=== PATIENT | male | born 1935 | race Caucasian/White ===

== ENCOUNTER 2018-12-04 08:19 | Outpatient (CLI) | payer MEDICARE, BC ==
[~2018-12-04 08:19] MED LIST: ALLO300T10 PO; ASCO-139 PO; ASPI-1009 PO; CALC625T61 PO; CARV80CP5 PO; CHOL100010 PO; COU5T PO; DOXA4TAB5 PO; ENOX100S3 SQ; IRON150C13 PO; LATA2.5D6 OP; MULT1TAB PO; RESV250C2 PO; VALS1TAB81 PO; VITA150T PO; ZINC1CAP3 PO; [UNRECOGNIZED DRUG - CODE] PO
== END 2018-12-04 23:59 | disposition home or self-care (01) ==
LOC: DIABETIC 08:19
PROVIDERS: ATTEND Internal Medicine Critical Care Medicine
DX: I12.9 Hypertensive chronic kidney disease with stage 1 through stage 4 chronic kidney disease, or unspecified chronic kidney disease (principal); N18.3 Chronic kidney disease, stage 3 (moderate)
CPT/HCPCS: 97802

== ENCOUNTER 2021-09-22 09:58 | Emergency (ER) | payer MEDICARE, BC ==
[~2021-09-22] VITALS: Ht 170.2 cm; Wt 91.4 kg
[~2021-09-22 09:58] MED LIST changes: -COU5T PO; +WARF-113 PO
[2021-09-22 10:39] VITALS: BP 135/44
== END 2021-09-22 11:37 | disposition home or self-care (01) ==
LOC: ER 09:59
DX: R25.2 Cramp and spasm (principal); I10 Essential (primary) hypertension; M10.9 Gout, unspecified; Z86.718 Personal history of other venous thrombosis and embolism; Z90.49 Acquired absence of other specified parts of digestive tract; Z98.890 Other specified postprocedural states; Z79.82 Long term (current) use of aspirin; Z79.899 Other long term (current) drug therapy
CPT/HCPCS: 93971; 99284

== ENCOUNTER 2024-03-08 07:49 | Day surgery (SDC) | payer MEDICARE, BC ==
[~2024-03-08] VITALS: Ht 167.6 cm; Wt 87.2 kg
[~2024-03-08 07:49] MED LIST changes: -DOXA4TAB5 PO; +DOXA4TAB94 PO; -ENOX100S3 SQ; -WARF-113 PO
[2024-03-08 08:35] VITALS: BP 172/78; PULSE 68; RESP 16
[2024-03-08] MEDS ORDERED: MIDAZolam 1 MG/ML 5ML VIAL ONE (09:09)
[2024-03-08] MEDS ORDERED: fentaNYL/PF 50MCG/1 ML 2ML syringe ONE (09:09)
[2024-03-08] MEDS ORDERED: diphenhydrAMINE 50 mg/ml inj ONE (09:10)
[2024-03-08 09:29] VITALS: BP 126/57; PULSE 64; RESP 16; O2SAT 97
[2024-03-08 09:39] VITALS: BP 121/56; PULSE 58; RESP 11; O2SAT 97
[2024-03-08 09:49] VITALS: BP_SYST 133; BP_SYST 136; BP_DIAS 60; BP_DIAS 83; PULSE 60; PULSE 69; RESP 18; O2SAT 97; O2SAT 98
== END 2024-03-08 10:06 | disposition home or self-care (01) ==
LOC: GI LAB 07:49
PROVIDERS: ATTEND Internal Medicine Gastroenterology
DX: R13.10 Dysphagia, unspecified (principal); Q39.9 Congenital malformation of esophagus, unspecified; K31.89 Other diseases of stomach and duodenum
CPT/HCPCS: 43239; A4620; J2250; J3010; J7030; Z7512; 88305; 99152; J1200